=== PATIENT | female | born 1980 | race Caucasian/White ===

== ENCOUNTER 2017-04-13 08:29 | Emergency (ER) | payer OTHER ==
[2017-04-13] MEDS ORDERED: NS 0.9% 1000 ML* 1,000 ML IV ONE (10:01)
[2017-04-13] MEDS ORDERED: Meclizine TAB* 12.5 MG PO ONE (10:01)
[2017-04-13 10:54] LABS: Hematocrit 44 % (35-47); Hemoglobin 14.5 g/dl (12.0-16.0); Mean Corpuscular HGB Conc 33 g/dl (31-36); Mean Corpuscular Hemoglobin 29 pg (27-31); Mean Corpuscular Volume 88 fL (80-97); Mean Platelet Volume 9 um3 (7.4-10.4); Red Blood Count 4.96 10^6/ul (4.0-5.4); Red Cell Distribution Width 13 % (10.5-15); White Blood Count 11.4 10^3/ul (3.5-10.8)
[2017-04-13 11:06] LABS: Urine Bilirubin Negative (Negative); Urine Glucose Negative (Negative); Urine Nitrite Negative (Negative)
[2017-04-13 11:15] LABS: Albumin 4.2 g/dL (3.2-5.2); BUN/Creatinine Ratio 18.8 (8-20); Calcium 9.4 mg/dL (8.6-10.3); EGFR African American 123.1 (>60); EGFR Non-African American 95.7 (>60); Globulin 3.3 g/dL (2-4); Magnesium 1.8 mg/dL (1.9-2.7); Potassium 3.7 mmol/L (3.5-5.0); Total Bilirubin 0.4 mg/dL (0.2-1.0); Total Protein 7.5 g/dL (6.4-8.9)
[2017-04-13 11:33] LABS: TSH (Thyroid Stimulating Horm) 2.3 mcIU/mL (0.34-5.60)
[2017-04-13 13:09] VITALS: BP 131/84
--- NOTE | 2017-04-13 16:34 | ED ---
Carrillo Portillo Thomas, scribed for Suleman Alonzo MD on 04/13/17 at 0935 . Dizziness - HPI Summary HPI Summary: The pt is a 36 y/o M presenting to the ED c/o dizziness that began today at 06: 00. The dizziness is characterized as light-headedness and unsteadiness on feet. In the ED, she is asymptomatic. Her dizziness is worsened when she sits up. The pt additionally c/o lightheadedness and CP (sharp, intermittent, left axillary), nausea, and diaphoresis. The pt denies decreased hearing, near- syncope, tinnitus, leg pain, calf pain, abd pain. For the last 6 months, the pt s CP has been intermittent, but she presents to the ED today due to her dizziness. Sometimes, her CP lasts as long as a day, but it does not lead to nausea or diaphoresis normally. She denies CP in the ED. PMHx: hypothyroidism, otherwise previously healthy. PSHx: C-sections (2), ovarian cyst removal, cholecystectomy, mastitis removal (4 times). 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 FHx: negative for CAD. She only ate carrots for breakfast. She denies HLD or HTN. 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 She claims that today she is drinking adequate fluid. She denies recent sick contacts. - History Of Current Complaint Chief Complaint: EDDizziness Stated Complaint: CHEST PAIN/LIGHT HEADED/DIZZY Time Seen by Provider: 04/13/17 09:14 Hx Obtained From: Patient Onset/Duration: Resolved, Suddenly - today at 06:30 Timing: Constant Severity Currently: None Character: Lightheaded Aggravating Factor(s): Nothing Alleviating Factor(s): Nothing Associated Signs And Symptoms: Positive: Nausea, Diaphoresis, Chest Pain - ( left axillary), Other: - POS: lightheadedness; NEG: decreased hearing, near- syncope, tinnitus, leg pain, calf pain, abd pain. Negative: SOB - Allergies/Home Medications Allergies/Adverse Reactions: Allergies Allergy/AdvReac Type Severity Reaction Status Date / Time No Known Allergies Allergy Verified 04/13/17 09:15 Home Medications: Home Medications BuPROPion XL* [Bupropion XL*] 300 mg PO DAILY 04/13/17 [History Confirmed ] FLUoxetine CAP* [PROzac CAP*] 10 mg PO DAILY 04/13/17 [History Confirmed ] Furosemide TAB* [Lasix TAB*] 20 mg PO DAILY 04/13/17 [History Confirmed 04/13/17 ] Levothyroxine TAB* [Synthroid TAB*] 25 mcg PO DAILY 04/13/17 [History Confirmed 04/13/17] Vitamin D CAP* [Drisdol CAP*] 50,000 units PO .TWICE A WEEK 04/13/17 [History Confirmed 04/13/17] PMH/Surg Hx/FS Hx/Imm Hx Previously Healthy: No Endocrine/Hematology History: Reports: Hx Thyroid Disease - hypothyroidism Cardiovascular History: Denies: Hx Myocardial Infarction Opthamlomology History: Denies: Hx Legally Blind - Surgical History Surgery Procedure, Year, and Place: C-sections (2), ovarian cyst removal, cholecystectomy, mastitis removal (4 times) Infectious Disease History: No Infectious Disease History: Denies: Traveled Outside the [place] in Last 30 Days - Family History Known Family History: Negative: Cardiac Disease - Social History Alcohol Use: None Substance Use Type: Reports: None Hx Tobacco Use: No Smoking Status (MU): Never Smoked Tobacco Review of Systems Positive: Skin Diaphoresis. Negative: Fever Eyes: Negative ENT: Negative Negative: Other - NEG: decreased hearing, tinnitus Positive: Chest Pain - sharp, intermittent, left axillary Respiratory: Negative Positive: Nausea. Negative: Abdominal Pain Genitourinary: Negative Musculoskeletal: Negative Negative: Other - NEG: leg pain, calf pain, calf pain Skin: Negative Neurological: Other - POS: dizziness characterized as lightheadedness; NEG: near -syncope Positive: Headache Psychological: Normal All Other Systems Reviewed And Are Negative: Yes Physical Exam - Summary Physical Exam Summary: The patient is well-nourished in no acute distress and in no acute pain. The skin is warm and dry and skin color reflects adequate perfusion. HEENT: The head is normocephalic and atraumatic. The pupils are equal and reactive. There is some nystagmus. The conjunctivae are clear and without drainage. Nares are patent and without drainage. Mouth reveals moist mucous membranes and the throat is without erythema and exudate. The external ears are intact. The ear canals are patent and without drainage. Both tympanic membranes are intact. Neck is supple with full range of motion and non-tender. There are no carotid bruits. There is no neck vein distension. Respiratory: Chest is non-tender. Lungs are clear to auscultation and breath sounds are symmetrical and equal. Cardiovascular: Hear is regular rate and rhythm. There is no murmur or rub auscultated. There is no peripheral edema and pulses are symmetrical and equal. Abdomen: The abdomen is obese, soft and non-tender. Musculoskeletal: There is no back pain noted. Extremities are non-tender with full range of motion. There is good capillary refill. There is no peripheral edema or calf tenderness elicited. Neurological: Patient is alert and oriented to person, place and time. Psychiatric: The patient has an appropriate affect and does not exhibit any anxiety or depression. Triage Information Reviewed: Yes Vital Signs On Initial Exam: Initial Vitals Temp Pulse Resp BP Pulse Ox 96.9 F 79 20 127/71 98 04/13/17 08:40 04/13/17 08:40 04/13/17 08:40 04/13/17 08:40 04/13/17 08:40 Vital Signs Reviewed: Yes - [place] Coma Scale Coma Scale Total: 15 Diagnostics - Vital Signs Vital Signs Temp Pulse Resp BP Pulse Ox 04/13/17 09:05 98.4 F 75 20 127/58 96 04/13/17 09:04 71 22 127/58 96 04/13/17 09:00 71 19 97 04/13/17 08:59 74 20 95 04/13/17 08:40 96.9 F 79 20 127/71 98 - Laboratory Lab Results: Lab Results 04/13/17 04/13/17 04/13/17 Range/Units 10:35 10:35 10:35 WBC 11.4 H (3.5-10.8) 10^3/ul RBC 4.96 (4.0-5.4) 10^6/ul Hgb 14.5 (12.0-16.0) g/dl Hct 44 (35-47) % MCV 88 (80-97) fL MCH 29 (27-31) pg MCHC 33 (31-36) g/dl RDW 13 (10.5-15) % Plt Count 294 (150-450) 10^3/ul MPV 9 (7.4-10.4) um3 Neut % (Auto) 66.7 (38-83) % Lymph % (Auto) 26.4 (25-47) % [place] % (Auto) 4.4 (1-9) % Eos % (Auto) 1.3 (0-6) % Baso % (Auto) 1.2 (0-2) % Absolute Neuts (auto) 7.6 (1.5-7.7) 10^3/ul Absolute Lymphs (auto) 3.0 (1.0-4.8) 10^3/ul Absolute Monos (auto) 0.5 (0-0.8) 10^3/ul Absolute Eos (auto) 0.2 (0-0.6) 10^3/ul Absolute Basos (auto) 0.1 (0-0.2) 10^3/ul Absolute Nucleated RBC 0 10^3/ul Nucleated RBC % 0 Sodium 137 (133-145) mmol/L Potassium 3.7 (3.5-5.0) mmol/L Chloride 103 (101-111) mmol/L Carbon Dioxide 25 (22-32) mmol/L Anion Gap 9 (2-11) mmol/L BUN 13 (6-24) mg/dL Creatinine 0.69 (0.51-0.95) mg/dL Est GFR ( Amer) 123.1 (>60) Est GFR (Non-Af Amer) 95.7 (>60) BUN/Creatinine Ratio 18.8 (8-20) Glucose 83 (70-100) mg/dL Lactic Acid (0.5-2.0) mmol/L Calcium 9.4 (8.6-10.3) mg/dL Magnesium 1.8 L (1.9-2.7) mg/dL Total Bilirubin 0.40 (0.2-1.0) mg/dL AST 16 (13-39) U/L ALT 28 (7-52) U/L Alkaline Phosphatase 59 (34-104) U/L Troponin I 0.00 (<0.04) ng/mL Total Protein 7.5 (6.4-8.9) g/dL Albumin 4.2 (3.2-5.2) g/dL Globulin 3.3 (2-4) g/dL Albumin/Globulin Ratio 1.3 (1-3) TSH 2.30 (0.34-5.60) mcIU/mL Urine Color Yellow Urine Appearance Clear Urine pH 5.0 (5-9) Ur Specific Alpha 1.009 L (1.010-1.030) Urine Protein Negative (Negative) Urine Ketones Negative (Negative) Urine Blood Negative (Negative) Urine Nitrate Negative (Negative) Urine Bilirubin Negative (Negative) Urine Urobilinogen Negative (Negative) Ur Leukocyte Esterase Negative (Negative) Urine Glucose Negative (Negative) 04/13/17 Range/Units 10:35 WBC (3.5-10.8) 10^3/ul RBC (4.0-5.4) 10^6/ul Hgb (12.0-16.0) g/dl Hct (35-47) % MCV (80-97) fL MCH (27-31) pg MCHC (31-36) g/dl RDW (10.5-15) % Plt Count (150-450) 10^3/ul MPV (7.4-10.4) um3 Neut % (Auto) (38-83) % Lymph % (Auto) (25-47) % [place] % (Auto) (1-9) % Eos % (Auto) (0-6) % Baso % (Auto) (0-2) % Absolute Neuts (auto) (1.5-7.7) 10^3/ul Absolute Lymphs (auto) (1.0-4.8) 10^3/ul Absolute Monos (auto) (0-0.8) 10^3/ul Absolute Eos (auto) (0-0.6) 10^3/ul Absolute Basos (auto) (0-0.2) 10^3/ul Absolute Nucleated RBC 10^3/ul Nucleated RBC % Sodium (133-145) mmol/L Potassium (3.5-5.0) mmol/L Chloride (101-111) mmol/L Carbon Dioxide (22-32) mmol/L Anion Gap (2-11) mmol/L BUN (6-24) mg/dL Creatinine (0.51-0.95) mg/dL Est GFR ( Amer) (>60) Est GFR (Non-Af Amer) (>60) BUN/Creatinine Ratio (8-20) Glucose (70-100) mg/dL Lactic Acid 1.0 (0.5-2.0) mmol/L Calcium (8.6-10.3) mg/dL Magnesium (1.9-2.7) mg/dL Total Bilirubin (0.2-1.0) mg/dL AST (13-39) U/L ALT (7-52) U/L Alkaline Phosphatase (34-104) U/L Troponin I (<0.04) ng/mL Total Protein (6.4-8.9) g/dL Albumin (3.2-5.2) g/dL Globulin (2-4) g/dL Albumin/Globulin Ratio (1-3) TSH (0.34-5.60) mcIU/mL Urine Color Urine Appearance Urine pH (5-9) Ur Specific Alpha (1.010-1.030) Urine Protein (Negative) Urine Ketones (Negative) Urine Blood (Negative) Urine Nitrate (Negative) Urine Bilirubin (Negative) Urine Urobilinogen (Negative) Ur Leukocyte Esterase (Negative) Urine Glucose (Negative) Result Diagrams: 04/13/17 10:35 04/13/17 10:35 Lab Statement: Any lab studies that have been ordered have been reviewed, and results considered in the medical decision making process. - EKG 09:26 Cardiac Rate: NL - 62 BPM EKG Interpretation: LAD. Normal sinus. Poor R wave progression. No STEMI Re-Evaluation - Re-Evaluation First Eval Re-Evaluation Time: 12:50 Change: Improved - the patient says that she feels better with minimal dizziness. She walked to the bathroom without difficulty. Dizzy Course/Dx - Course Assessment/Plan: The pt is a 36 y/o M presenting to the ED c/o dizziness that began today at 06:00. The dizziness is characterized as light-headedness and unsteadiness on feet. In the ED, she is asymptomatic. Her dizziness is worsened when she sits up. The pt additionally c/o lightheadedness and CP (sharp, intermittent, left axillary), nausea, and diaphoresis. The pt denies decreased hearing, near-syncope, tinnitus, leg pain, calf pain, abd pain. For the last 6 months, the pts CP has been intermittent, but she presents to the ED today due to her dizziness. Sometimes, her CP lasts as long as a day, but it does not lead to nausea or diaphoresis normally. She denies CP in the ED. PMHx: hypothyroidism, otherwise previously healthy. PSHx: C-sections (2), ovarian cyst removal, cholecystectomy, mastitis removal (4 times). 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 FHx: negative for CAD. She only ate carrots for breakfast. She denies HLD or HTN. 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 She claims that today she is drinking adequate fluid. She denies recent sick contacts. At re-evaluation, the patient says that she feels better with minimal dizziness. She walked to the bathroom without difficulty. EKG reveals 62 BPM, LAD, normal sinus, poor R wave progression, no STEMI. Bloodwork shows WBC 11.4, Magnesium 1.8. UA shows specific gravity 1.009, 1+ blood. In the ED she was given IV fluids and Meclizine. She was told to follow up with her family doctor for evaluation of her chest pain. She is sent home with Meclizine and diagnosed with dizziness and chest pain. Patient is agreeable with this plan. - Diagnoses Differential Diagnosis/HQI/PQRI: Coronary Artery Disease, Hypovolemia, Labyrinthitis, Metabolic Abnormality Provider Diagnoses: Dizziness, Chest pain Discharge - Discharge Plan Condition: Stable Disposition: HOME Prescriptions: Meclizine TAB* [Antivert 12.5 TAB*] 25 mg PO QID PRN #30 tab PRN Reason: Dizziness Patient Education Materials: Dizziness (ED), Chest Pain (ED) Forms: *Work Release Referrals: [facility] [place] [facility]IAN REFERRAL [Outside] Additional Instructions: Take the AntiVert as described. Follow up regarding your chest pain with your family doctor or use the physician referral service to find a family doctor. The documentation as recorded by the Carrillo feldman Thomas accurately reflects the service I personally performed and the decisions made by me, Suleman Alonzo MD.
== END 2017-04-13 13:08 | disposition home or self-care (01) ==
LOC: ED 08:29
DX: R42 Dizziness and giddiness (principal); R07.9 Chest pain, unspecified; R11.0 Nausea; R51 Headache
CPT/HCPCS: 36415; 80053; 81003; 83605; 83735; 84443; 84484; 85025; 93005; 99283; A9270-GY